=== PATIENT | male | born 1965 | race Caucasian/White ===

== ENCOUNTER 2023-07-14 18:31 | Emergency (ER) | payer OTHER ==
[2023-07-14] MEDS ORDERED: Aspirin 81 MG Tab.Chew PO ONE (18:47)
[2023-07-14] MEDS ORDERED: cloNIDine 0.1 MG Tab PO ONE (18:48)
[2023-07-14 19:10] LABS: BASOPHILS ABSOLUTE AUTO 0.11 K/uL (0.02-0.10); BASOPHILS PERCENT AUTO 1.2 % (0.0-0.5); EOSINOPHILS ABSOLUTE AUTO 0.25 K/uL (0.04-0.40); EOSINOPHILS PERCENT AUTO 2.6 % (1.0-5.0); HEMATOCRIT 45.7 % (40.0-54.0); HEMOGLOBIN 16.1 g/dL (13.0-18.0); LYMPHOCYTES ABSOLUTE AUTO 1.88 K/uL (1.50-4.00); LYMPHOCYTES PERCENT AUTO 19.8 % (20.0-40.0); MEAN CORPUSCULAR HEMOGLOBIN 32.1 pg (27.0-32.0); MEAN CORPUSCULAR HGB CONC 35.2 g/dL (31.0-35.0); MEAN CORPUSCULAR VOLUME 91 fL (76-96); MEAN PLATELET VOLUME 9.7 fL (6.0-10.0); MONOCYTES ABSOLUTE AUTO 0.68 K/uL (0.20-0.80); MONOCYTES PERCENT AUTO 7.2 % (3.0-10.0); NEUTROPHILS ABSOLUTE AUTO 6.59 K/uL (2.00-7.50); NEUTROPHILS PERCENT AUTO 69.2 % (45.0-70.0); PLATELET COUNT,PLT 245 K/uL (150-400); RED BLOOD CELL COUNT 5.02 M/uL (4.50-6.50); RED CELL DISTRIBUTION WIDTH 12.4 % (11.0-16.0); WHITE BLOOD CELL COUNT,WBC 9.5 K/uL (4.0-11.0)
[2023-07-14 19:27] LABS: ANION GAP 16.4 mmol/L (5.0-15.0); BILIRUBIN TOTAL 0.4 mg/dL (0.0-1.0); BUN/CREATININE RATIO 10.9 (6-25); CARBON DIOXIDE,CO2 24.6 mmol/L (21.0-32.0); CREATININE 1.01 mg/dL (0.70-1.30); EST CRCL DRUG DOSING (CG) 82.64 mL/min; MAGNESIUM 2.1 mg/dL (1.8-2.4); PROTEIN TOTAL,TP 8.1 g/dL (6.4-8.2); TROPONIN I HIGH SENSITIVITY 12.6 pg/ml (<=60.4)
== END 2023-07-14 19:43 | disposition home or self-care (01) ==
LOC: LB.ED 18:31
DX: R07.9 Chest pain, unspecified (principal); R45.89 Other symptoms and signs involving emotional state
CPT/HCPCS: 36415; 80053; 83735; 84484; 85025; 93005; 99285; A9270-GY